=== PATIENT | female | born 1995 | race Caucasian/White ===

== ENCOUNTER 2017-07-06 08:56 | Emergency (ER) | payer OTHER ==
[~2017-07-06] VITALS: Ht 167.6 cm; Wt 56.7 kg
[2017-07-06 09:01] VITALS: BP 127/94
[2017-07-06] MEDS ORDERED: NACL 0.9% 1,000 ML IV ONE (09:20)
[2017-07-06] MEDS ORDERED: METOPROLOL 5 MG/5 ML VIAL IVP ONE (09:20)
[2017-07-06] MEDS ORDERED: LORazepam 2 MG/ML VIAL IVP ONE (09:20)
--- NOTE | 2017-07-06 09:30 | NUR ---
PT COMES TO ED C/O CHEST TIGHTNESS SINCE THIS MORNING S/P METH USE LAST NIGHT. PT WITH H/O METH USE. PT DENIES N/V/DIZZIESS OR SOB. PLACED ON ALL MONIOTRS, TACHYCARDIA OBSERVED AT 103BPM. AT BEDSIDE TO SUSY.
[2017-07-06 09:40] LABS: BASOPHILS # (AUTO) 0.1 K/uL (0.00-0.22); BASOPHILS % (AUTO) 0.7 % (0.0-2.0); EOSINOPHILS % (AUTO) 0.2 % (0.0-4.0); HEMATOCRIT 38.6 % (36-48); HEMOGLOBIN 13.1 g/dL (12.0-16.0); LYMPHOCYTES # (AUTO) 2.5 K/uL (2.5-16.5); LYMPHOCYTES % (AUTO) 25.6 % (20.5-51.1); MEAN CORPUSCULAR HEMOGLOBIN 30 pg (27-31); MEAN CORPUSCULAR HGB CONC 34 g/dL (33-37); MONOCYTES # (AUTO) 0.9 K/uL (0.8-1.0); MONOCYTES % (AUTO) 9.2 % (1.7-9.3); NEUTROPHILS # (AUTO) 6.3 K/uL (1.8-7.7); NEUTROPHILS % (AUTO) 64.3 % (42.2-75.2); PLATELET COUNT (AUTO) 264 K/uL (140-450); RED BLOOD CELL COUNT(AUTO) 4.43 MIL/uL (4.20-5.40); RED CELL DISTRIBUTION WIDTH 13.5 % (11.6-13.7); WHITE BLOOD COUNT (AUTO) 9.8 K/uL (4.8-10.8)
--- NOTE | 2017-07-06 09:46 | NUR ---
Lights dimmed, pt placed in position of comfort. All needs addressed.
[2017-07-06 10:16] LABS: ANION GAP 13.9 (8-16); CARBON DIOXIDE 24.8 mmol/L (21-32); CREATININE 0.7 mg/dL (0.6-1.3); POTASSIUM 3.7 mmol/L (3.5-5.1)
[2017-07-06 10:20] LABS: PROTHROMBIN TIME 11.4 secs (10.8-13.4)
[2017-07-06 10:33] LABS: ALBUMIN 3.8 g/dL (3.4-5.0); THYROID STIMULATING HORMONE 1.83 uIU/mL (0.34-3.74); TOTAL BILIRUBIN 0.8 mg/dL (0.0-1.0)
--- NOTE | 2017-07-06 10:58 | NUR ---
IV removed, catheter intact and site benign. Applied folded 4x4 gauze and tape to stop bleeding.
[2017-07-06 11:00] VITALS: BP 138/78
--- NOTE | 2017-07-06 11:01 | NUR ---
Note [email or web address] in EDM - 07/06/17 at 1101 by [facility] Patient discharged with v/s stable. Written and verbal after care instructions given and explained. Patient alert, oriented and verbalized understanding of instructions. Ambulatory with steady gait. All questions addressed prior to discharge. ID band removed. Patient advised to follow up with PMD. Rx of PEPCID given. Patient educated on indication of medication including possible reaction and side effects. Opportunity to ask questions provided and answered.
--- NOTE | 2017-07-06 11:01 | NUR ---
Patient discharged with v/s stable. Written and verbal after care instructions given and explained. Patient verbalized understanding. Ambulatory with steady gait. All questions addressed prior to discharge. Advised to follow up with PMD.
== END 2017-07-06 11:01 | disposition home or self-care (01) ==
LOC: MED 08:56
DX: F15.90 Other stimulant use, unspecified, uncomplicated (principal); E86.0 Dehydration
CPT/HCPCS: 36415; 71045; 80053; 84443; 84484; 85025; 85610; 93005; 96361; 96374; 96375; 99285; J2060; J3490; Q0092; 81025; J7030